=== PATIENT | male | born 1990 | race Caucasian/White ===

== ENCOUNTER 2017-06-22 21:01 | Observation (INO) ==
--- NOTE | 2017-06-22 21:58 | Emergency Department Note ---
Janet Hoskins Emily, am scribing for, and in the presence of, Autsin Boswell MD 21: 57. Elbert Hoskins Charles R, MD, personally performed the services described in this documentation, ascribed by Aleena Gonzales in my presence, and it is both accurate and complete . Arrival - Arrival Chief Complaint: Extremity Injury Stated Complaint: Ext injury ED Nursing Triage Note: C/C transfer from [facility] ER with crush injury to right foot. Mode of Arrival: Stretcher Limitations: No Limitations Source: Patient Time Seen by Provider: 06/22/17 21:33 - History of Present Illness HPI Narrative: Pt is a 27 y/o female who was transferred from [facility] ED for further evaluation of crush injury to left foot while at work today. Pt reports a boring rig (that drills into concrete or ground) crushed his left foot while onsite today. Pt reports he can feel his toes and denies ankle pain. No known medical hx. Onset (ago): hour(s) Consistency: constant Severity: severe Severity scale (1-10): 10 Quality: aching, sharp Allergies/Adverse Reactions: Allergies Allergy/AdvReac Type Severity Reaction Status Date / Time No Known Allergies Allergy Unverified 06/22/17 21:11 Review of System - Review of System 12 point system: reviewed and no additional remarkable complaints except as stated - Review of System Constitutional: Absent: chills, fever Respiratory: Absent: respiratory distress Cardiovascular: Absent: chest pain Gastrointestinal: Absent: abdominal pain Musculoskeletal: Present: leg pain (left foot pain; no LLE, ankle or toe pain, can feel toes). Absent: arm pain, back pain, lower back pain, neck pain Skin: Absent: rash Neurological: Absent: headache Medical,Surgical,& Family Hx - Medical History Musculoskeletal: History of: Back/Neck Problems (screw in C1,2,3) - Surgical History Surgical History: noncontributory - Family History Family History: noncontributory - Social History Smoking Status: Never smoker Frequency of Alcohol Use: Occasionally Type of Drug Use: None Marital Status: Single Lives With:: Alone Functional capacity: independent ambulation Exam Vital Signs: Vital Signs Temperature 98.4 F 06/22/17 21:02 Pulse Rate 89 06/22/17 21:02 Respiratory Rate 14 06/22/17 21:02 Blood Pressure 150/95 06/22/17 21:02 O2 Sat by Pulse Oximetry 99 06/22/17 21:02 - General General appearance: alert, in no apparent distress - Head Head exam: Present: atraumatic, normocephalic - Eye Eye exam: Present: PERRL, EOMI - ENT ENT exam: Present: mucous membranes moist. Absent: mucous membranes dry - Neck Neck exam: Present: full ROM, trachea midline - Chest Chest inspection: Present: symmetric chest wall rise - Respiratory Respiratory exam: Present: normal lung sounds bilaterally. Absent: respiratory distress - Cardiovascular Cardiovascular exam: Present: regular rate, normal rhythm, normal heart sounds - Extremities Exam Extremities exam: Present: tenderness (open metatarsal fx of 3 X4 cm on left plantar surface with swelling; +2 pedal pulses). Absent: full ROM (limited ROM in left foot secondary to pain) - Neurological Exam Neurological exam: Present: alert, oriented X3, CN II-XII intact - Psychiatric Psychiatric exam: Present: normal affect, normal mood - Skin Skin exam: Present: warm, dry Course Course Narrative: Patient will be admitted to orthopedics for open fracture crush injury laceration does not need to be repaired emergency room this will be done in surgery - Consultations Consultation #1: Dr. Pickard will admit patient Time: 22:00 Results - Labs Lab Results: I have reviewed the patients labs Labs: All labs reviewed from previous facility Disposition Clinical Impression: Crush injury of right foot, Open right second third metatarsal FX, Laceration plantar surface of foot Case discussed with: patient Disposition: Still a Patient Condition: Stable Time of Disposition: 22:02
[2017-06-23] MEDS ORDERED: MAGNESIUM HYDROXIDE SUSP 30 ML UDCUP PO PRN (00:34)
[2017-06-23] MEDS ORDERED: ONDANSETRON 4 MG/2 ML VIAL IV PRN ×2 (00:34→11:56)
[2017-06-23] MEDS: HYDROmorphone 2 MG/1 ML VIAL IV PRN ×3 (00:46→10:39)
[2017-06-23] MEDS: SODIUM CHLORIDE 0.9% 1,000 ML IV SCH ×2 (00:47→09:49)
[2017-06-23 02:29] LABS: Barbiturates Screen,Urine Negative (Negative); Benzodiazepines Screen,Urine Negative (Negative); Cannabinoid Screen,Urine Negative (Negative); Opiate Screen,Urine Positive (Negative); Phencyclidine Screen,Urine Negative (Negative)
[2017-06-23 02:43] LABS: Basophils % 0.4 % (0.0-0.8); Eosinophils # 0.1 10*3/uL (0.0-0.87); Eosinophils % 1.6 % (0.00-10.9); Hematocrit 38.9 VOL% (42.0-52.0); Hemoglobin 14.2 GM/DL (14.0-18.0); Immature Granulocytes % 0.1 %; Immature Granulocytes Absolute 0.01 #; Lymphocytes # 1.9 10*3/uL (1.4-4.0); Lymphocytes % 27.9 % (21.2-54.2); Mean Corpuscular HGB Conc 36.5 GM/DL (32-36); Mean Corpuscular Hemoglobin 31 PG (27-34); Mean Platelet Volume 10.6 FL (9.6-12.0); Monocytes # 0.7 10*3/uL (0.11-0.8); Monocytes % 10.1 % (1.7-12.7); Neutrophils # 4.2 10*3/uL (1.4-7.4); Neutrophils % 59.9 % (38.7-73.9); Platelet Count 164 T/CUMM (130-400); Red Blood Count 4.63 MC/CUMM (3.8-5.5); Red Cell Distribution Width 12.3 % (9.3-17.3)
[2017-06-23 03:08] LABS: Albumin 4.4 G/DL (3.4-5.0); Bilirubin,Total 0.7 MG/DL (0.2-1.0); Osmolality,Calculated 278.5 MOS/KG (273-304); Potassium 3.9 MMOL/L (3.5-5.1); Total Protein 7.6 G/DL (6.4-8.3)
--- NOTE | 2017-06-23 07:14 | Orthopedic History & Physical ---
History of Present Illness Chief complaint: Right foot fractures with open wound plantar foot History of present illness: Mr. Alvarado is a 27 year old male See dictated report Home Medications Medication Instructions Recorded Confirmed Type Cetirizine HCl [ZyrTEC Cap] 10 mg PO DAILY PRN 06/23/17 06/23/17 History Allergies Allergy/AdvReac Type Severity Reaction Status Date / Time No Known Allergies Allergy Unverified 06/22/17 21:11 Medical,Surgical,& Family Hx - Medical History Musculoskeletal: History of: Back/Neck Problems (screw in C1,2,3), Musculoskeletal Problems (Fractures: R ank, L ank, L wrist x2, sternum, clavicle ) - Social History Smoking Status: Never smoker Frequency of Alcohol Use: Occasionally Type of Drug Use: None Exam - Constitutional Vitals: Period Temp Pulse Resp BP Sys/Hartman Pulse Ox Last 24 Hr 98.4 F-98.4 F 65-89 14-18 112-150/70-95 93-99 Results - Labs CBC & BMP: 06/23/17 02:24 06/23/17 02:24
--- NOTE | 2017-06-23 07:14 | Order Completion Report ---
See report scanned to EMR
--- NOTE | 2017-06-23 08:34 | XRay Report ---
XR chest 1V portable Indication: SOB Comparison: None Technique: Single frontal view of the chest. Findings: Cardiomediastinal silhouette appears within normal limits. No focal consolidation, pleural effusion, or pneumothorax. Visualized osseous and surrounding soft tissue structures demonstrate no acute abnormality. IMPRESSION: No acute cardiopulmonary process demonstrated. PROCEDURE INTERPRETED AT [facility] DEPARTMENT OF RADIOLOGY Final Report Signed by: Dr Weston Schroeder
[2017-06-23] MEDS ORDERED: HYDROmorphone 2 MG/1 ML VIAL ONE (10:33)
[2017-06-23] MEDS ORDERED: ceFAZolin 1,000 MG VIAL ONE (11:27)
--- NOTE | 2017-06-23 11:53 | Anesthesia Post-Op ---
Anesthesia Post OP - Post Ansesthetic Evaluation Patient seen in post op: Yes Resp: within normal limits CV: within normal limits Mental: within normal limits Temp: within normal limits Dgru-Eq-Hydkhawrh: within normal limits Nausea and Vomiting: within normal limits Pain: within normal limits
[2017-06-23] MEDS ORDERED: PROMETHAZINE 25 MG/1 ML VIAL IM PRN (11:54)
[2017-06-23] MEDS ORDERED: HYDROmorphone 2 MG/1 ML VIAL IV PRN (11:56)
[2017-06-23] MEDS ORDERED: PROPOFOL 200 MG/20 ML VIAL IV ONE (11:58)
[2017-06-23] MEDS ORDERED: SEVOFLURANE 1 UNIT/15 MINUTE INH ONE (11:58)
[2017-06-23] MEDS ORDERED: MIDAZOLAM 2 MG/2 ML VIAL ONE (11:59)
[2017-06-23] MEDS ORDERED: KETOROLAC 30 MG/1 ML VIAL ONE (11:59)
[2017-06-23] MEDS ORDERED: fentaNYL 100 MCG/2 ML VIAL ONE (11:59)
[2017-06-23] MEDS ORDERED: CIPROFLOXACIN 500 MG TABLET PO SCH (12:00)
[2017-06-23] MEDS ORDERED: LACTATED RINGERS 1,000 ML IV SCH (12:00)
--- NOTE | 2017-06-23 13:32 | Discharge Summary ---
Hospital Course - Hospital Course Hospital Course: Admitted following crush injury right foot started on antibiotics underwent formal washout and discharged home Diagnosis - Discharge Diagnosis (1) Open fracture of metatarsal of right foot Status: Acute Discharge Plan - Discharge Data Disposition: Disch To Home/Self Care Condition at Discharge: Stable Discharge Diet: advance to your usual diet Activity: as per physical therapy Hygiene: keep area(s) dry Weight Bearing at Discharge: non-weight bearing Driving: not until seen by doctor - Discharge Medications New HYDROcodone/ACETAMIN 7.5-325 [[place] 7.5-325] 2 tablet PO Q4H PRN #25 tablet PRN Reason: Pain Severe (8-10) Ciprofloxacin Tab [Cipro Tab] 500 mg PO Q12HR #14 tablet Continue Cetirizine HCl [ZyrTEC Cap] 10 mg PO DAILY PRN PRN Reason: Allergy Symptoms - Follow Up or Referral - Forms/Instructions Additional Discharge Instructions: Discharge to home if comfortable and able to crutch ambulate nonweightbearing on right. Discharge medications [place] 7.5 #25 as needed. Cipro twice daily 1 week. keep dressing clean dry and intact follow-up with local orthopedist for initial dressing change and follow-up either or Thursday this week Exam - Constitutional Vitals: Period Temp Pulse Resp BP Sys/Hartman Pulse Ox Last 24 Hr 97.3 F-98.4 F 62-89 14-18 90-151/57-95 93-100 Discharge Results Labs on day of discharge: Labs from last 24 hours 06/23/17 06/23/17 06/23/17 02:24 02:24 02:24 WBC RBC Hgb Hct MCV MCH MCHC RDW Plt Count MPV Neut % (Auto) Lymph % (Auto) [place] % (Auto) Eos % (Auto) Baso % (Auto) Neut # (Auto) Lymph # (Auto) [place] # (Auto) Eos # (Auto) Baso # (Auto) Immature Gran % Nucleated RBC % Immature Gran # Nucleated RBCs # Immature Plt Fraction INR 1.0 PT Patient/Control Mix 11.0 Sodium 139 Potassium 3.9 Chloride 101 Carbon Dioxide 31 Anion Gap 10.9 BUN 18 Creatinine 1.00 GFR Calculation 119 BUN/Creatinine Ratio 18.00 Glucose 106 Calculated Osmolality 278.5 Calcium 9.0 Total Bilirubin 0.70 AST 21 ALT 25 Alkaline Phosphatase 73 Total Protein 7.6 Albumin 4.4 Globulin 3.2 Albumin/Globulin Ratio 1.3 Urine Opiates Screen Ur Barbiturates Screen Ur Phencyclidine Scrn U Amphetamine/Methamph U Benzodiazepines Scrn U Cocaine Metab Screen U Cannabinoids Screen Blood Type O POSITIVE Antibody Screen Negative 06/23/17 06/23/17 02:24 00:00 WBC 7.0 RBC 4.63 Hgb 14.2 Hct 38.9 L MCV 84.0 L MCH 31 MCHC 36.5 H RDW 12.3 Plt Count 164 MPV 10.6 Neut % (Auto) 59.9 Lymph % (Auto) 27.9 [place] % (Auto) 10.1 Eos % (Auto) 1.6 Baso % (Auto) 0.4 Neut # (Auto) 4.2 Lymph # (Auto) 1.9 [place] # (Auto) 0.7 Eos # (Auto) 0.1 Baso # (Auto) 0.0 Immature Gran % 0.1 Nucleated RBC % 0.0 Immature Gran # 0.01 Nucleated RBCs # 0.00 Immature Plt Fraction 0.0 INR PT Patient/Control Mix Sodium Potassium Chloride Carbon Dioxide Anion Gap BUN Creatinine GFR Calculation BUN/Creatinine Ratio Glucose Calculated Osmolality Calcium Total Bilirubin AST ALT Alkaline Phosphatase Total Protein Albumin Globulin Albumin/Globulin Ratio Urine Opiates Screen Positive H Ur Barbiturates Screen Negative Ur Phencyclidine Scrn Negative U Amphetamine/Methamph Negative U Benzodiazepines Scrn Negative U Cocaine Metab Screen Negative U Cannabinoids Screen Negative Blood Type Antibody Screen DS: Provider Date of admission: 06/22/17 22:07 Primary care physician: . No PCP Attending physician on admission: Nathaniel Pickard Jr., MD Consults: 06/23/17 00:34 Consult to Anesthesiology [CONS] Routine Consulting Provider: Reason for Anesthesiology: Pre-op Clearance 06/23/17 11:54 Consult to Physical Therapy [CONS] Routine Reason for Physical Therapy: Evaluate and Treat Consult Comment: Nonweightbearing on right crutch training Discharging clinician: Nathaniel Pickard Jr., MD
--- NOTE | 2017-06-23 13:35 | History and Physical Report ---
DATE OF ADMISSION: 06/22/2017 HISTORY: A 27-year-old white male, who was involved in a work-related injury when he had his foot ca ught underneath a piece of heavy machinery. He had a steel toed boot on when this occurred. He sust ained a fracture to the forefoot on the right side involving a plantar foot laceration. He was trans ferred to [facility] after initially presenting to [facility]. The wound was dressed sterilely and started on antibiotics and made n. p.o. over night. PAST MEDICAL: None. MEDICINES: None. ALLERGIES: None. PHYSICAL EXAMINATION GENERAL: Well-developed, well-nourished male. He is awake, alert and oriented. HEENT: Within normal limits. CHEST: Clear. HEART: Regular rate and rhythm. ABDOMEN: Soft, nontender. /RECTAL: Deferred. EXTREMITIES: He has no pain about either upper extremity or about the left lower. On the right side , there is mild swelling about the dorsum of the foot and gently wiggles his toes, describes sensibil ity is slightly diminished, but intact. On the plantar surface, there is a vertical oriented wound, measuring about 3 cm in the mid forefoot. It is cleaned, there is no foreign material. Radiographs confirm oblique fracture involving the neck of the second and third metatarsals, mildly d isplaced. IMPRESSION: OPEN FRACTURES, RIGHT SECOND AND THIRD METATARSALS. PLAN: I have discussed with him and his family that they need to formally wash out the open fracture . I do not believe there is any need for hardware. I believe the fractures would heal on their own. They live in [place] and would like to depart as soon as possible. I believe if the irrigation a nd debridement goes well that this afternoon it is possible for discharge on antibiotic and instructi ons for followup care. All other questions were answered. They appeared to understand and agreed to proceed with washout with open forefoot fractures.
--- NOTE | 2017-06-23 16:23 | Operative Note ---
DATE: 06/23/2017 PREOPERATIVE DIAGNOSIS: OPEN FRACTURES RIGHT FOOT, SECOND AND THIRD METATARSAL. POSTOPERATIVE DIAGNOSIS: SAME. OPERATIVE PROCEDURE: IRRIGATION AND DEBRIDEMENT OF OPEN FRACTURE RIGHT FOOT, SECOND AND THIRD METATA RSAL. SURGEON: Nathaniel Pickard Jr., MD ANESTHESIA: General. INDICATIONS: This is a 27-year-old white male, injured last night when he had his foot caught undern eath some heavy machinery. He sustained fractures to the second and third metatarsals as well as a w ound the on the plantar aspect of the foot, which was believed to communicate with the fractures. He was admitted for antibiotics and n.p.o. He was taken to the operating room this morning for irrigat ion and debridement. I discussed with his family preoperatively the diagnosis, treatment recommendat ion. They appeared understand and agreed to proceed. OPERATIVE PROCEDURE: The patient was taken to the operating room and under general anesthetic, posit ioned supine position. The right leg was positioned, prepped and draped in a usual sterile manner. A 3 cm laceration was noted on the plantar aspect of the right foot; it is extended proximally about a centimeter, so that better visualization and irrigation could be performed. I was able to palpate the fracture of the second metatarsal, which did communicate with the wound. Three liters of pulse l avage irrigation were then used to irrigate the wound and the fractures. The proximal extension of t he incision was loosely reapproximated with two interrupted 3-0 nylon sutures. A distal 2.5 cm of th e incision of the laceration were then packed with 0.5 inch gauze to the keep the wound open for maurisio weeks and secondary wound healing. The foot was then dressed with a soft sterile bulky dressing and h e was awakened, taken to the recovery room in stable condition.
[2017-06-23 17:01] VITALS: BP 117/58
== END 2017-06-23 16:33 | disposition home or self-care (01) ==
LOC: N.ED 21:01 → INTOOBSV 22:07 → N.EDINP 22:07 → N.3E 06-23 00:15
PROVIDERS: ADMIT Orthopaedic Surgery; ATTEND Orthopaedic Surgery